=== PATIENT | female | born 1995 | race Caucasian/White ===

== ENCOUNTER 2016-04-30 10:17 | Emergency (ER) | payer BC, OTHER ==
[~2016-04-30] VITALS: Ht 160 cm; Wt 86.2 kg
[~2016-04-30 10:17] MED LIST: AMOXICILLIN500 MG PO; APRI 0.15 MG-0.1 TAB PO; BACTRIM DS 8001 TA1 PO; CLEOCIN150 MG PO; COLACE100 MG PO; FLEXERIL10 MG PO; HYDROCODONE BIT1 T11 PO; IBU800 MG PO; IRON325 M1 PO; MOTRIN800 MG PO; NAPROSYN500 MG PO; NKHM; PERCOCET 325 MG1 TA2 PO; PNV PRENATAL HE1 TAB PO; TESSALON PERLE100 M1 PO; ULTRAM50 MG PO; ZITHROMAX Z PA250 MG PO
[2016-04-30 10:59] LABS: BASO % 0.2 % (0.0-1.0); EOS # 0.2 10*3/uL (0.0-0.4); EOS % 2.4 % (1.0-4.0); HEMATOCRIT 39.4 % (37.0-47.0); HEMOGLOBIN 13.2 g/dl (12.0-16.0); LYMPH # 1.5 10*3/uL (1.3-4.4); LYMPH % 15.1 % (27.0-41.0); MEAN CELL VOLUME 88.1 fl (81.0-99.0); MEAN CORPUSCULAR HGB 29.5 pg (27.0-31.0); MEAN CORPUSCULAR HGB CONC 33.5 g/dl (33.0-37.0); MEAN PLATELET VOLUME 11.2 fl (9.6-12.3); MONO # 0.6 10*3/uL (0.1-1.0); MONO % 6.6 % (3.0-9.0); NEUT # 7.4 10*3/uL (2.3-7.9); NEUT % 75.3 % (47.0-73.0); PLATELET COUNT AUTOMATED 280 10*3/uL (130-400); RED BLOOD COUNT 4.47 10*6/uL (4.10-5.10); RED CELL DISTRI WIDTH 12.2 % (0-14.5); WHITE BLOOD COUNT 9.8 10*3/uL (4.8-10.8)
[2016-04-30 11:06] LABS: BILIRUBIN NEGATIVE (NEGATIVE); BLOOD NEGATIVE (NEGATIVE); CLARITY CLEAR (CLEAR); COLOR YELLOW (YELLOW); GLUCOSE NEGATIVE (NEGATIVE); KETONE NEGATIVE (NEGATIVE); LEUKO ESTERASE TRACE (NEGATIVE); NITRITE NEGATIVE (NEGATIVE); PROTEIN TRACE (NEGATIVE); SPECIFIC GRAVITY 1.015 (1.005-1.030)
[2016-04-30 11:28] LABS: BUN 9 mg/dl (7-24); CARBON DIOXIDE 25 mmol/L (21-32); CHLORIDE 106 mmol/L (98-107); EST GLOM FILT AFRICAN AMERICAN > 60 ml/min; GLUCOSE 94 mg/dL (65-99); POTASSIUM 4.1 mmol/L (3.5-5.1); SODIUM 138 mmol/L (136-145)
[2016-04-30 11:30] LABS: BACTERIA TRACE
[2016-04-30 11:33] LABS: MUCOUS TRACE; RBC 0-2 rbc/hpf (0-2)
[2016-04-30 11:34] LABS: URINE REFLEX COMMENT YES (NO)
[2016-04-30] MEDS ORDERED: ALLERGY MEDICAT25 MG PO (12:06)
== END 2016-04-30 12:09 | disposition home or self-care (01) ==
LOC: ED 10:17
PROVIDERS: Emergency Medicine
DX: O26.891 Other specified pregnancy related conditions, first trimester (principal); K29.00 Acute gastritis without bleeding; F17.200 Nicotine dependence, unspecified, uncomplicated; Z3A.01 Less than 8 weeks gestation of pregnancy

== ENCOUNTER → 2016-07-23 | Outpatient (CLI) | payer BC, OTHER ==
[~2016-07-23] MED LIST changes: +ALLERGY MEDICAT25 MG PO
[2016-07-23 19:29] LABS: BILIRUBIN NEGATIVE (NEGATIVE); BLOOD NEGATIVE (NEGATIVE); CLARITY CLEAR (CLEAR); COLOR YELLOW (YELLOW); GLUCOSE NEGATIVE (NEGATIVE); KETONE NEGATIVE (NEGATIVE); LEUKO ESTERASE NEGATIVE (NEGATIVE); NITRITE NEGATIVE (NEGATIVE); PH 6.5 (5.0-9.0); PROTEIN NEGATIVE (NEGATIVE); SPECIFIC GRAVITY >= 1.030 (1.005-1.030)
[2016-07-24 22:07] LABS: AFP MOM 1.05 (.); AFP VALUE 33.6 ng/mL (.); DIA MOM 1.08 (.); DIA VALUE 158.31 pg/mL (.); DSR (BY AGE) 1 IN 1100 (.); DSR (SECOND TRIMESTER) 1 IN 7305 (.); GEST. AGE ON COLLECTION DATE 17.1 WEEKS (.); HCG VALUE 19134 mIU/mL (.); MATERNAL AGE AT EDD 23.1 YEARS (.); MULTIPLE GESTATION No (.); OSBR RISK 1 IN 10000 (.); T18 RISK Not increased (.); TEST RESULTS *Screen Negative* (.); UE3 MOM 0.84 (.); UE3 VALUE 0.84 ng/mL (.); WEIGHT 199 lbs (.)
== END | disposition home or self-care (01) ==
LOC: LAB 17:19
PROVIDERS: Obstetrics & Gynecology
DX: Z34.81 Encounter for supervision of other normal pregnancy, first trimester (principal)

== ENCOUNTER 2018-12-19 07:01 | Emergency (ER) | payer OTHER ==
[~2018-12-19] VITALS: Ht 160 cm; Wt 90.7 kg
== END 2018-12-19 08:25 | disposition home or self-care (01) ==
LOC: ED 07:01
DX: S61.210A Laceration without foreign body of right index finger without damage to nail, initial encounter (principal); W23.0XXA Caught, crushed, jammed, or pinched between moving objects, initial encounter; Y93.89 Activity, other specified; Y92.89 Other specified places as the place of occurrence of the external cause; Y99.8 Other external cause status